=== PATIENT | female | born 1990 | race Caucasian/White ===

== ENCOUNTER 2017-12-07 12:59 | Outpatient (CLI) | payer BC ==
[~2017-12-07] VITALS: Ht 165.1 cm; Wt 78.2 kg
[2017-12-07 12:48] VITALS: BP 100/55
[2017-12-07] MEDS ORDERED: PREN1TAB10 PO (15:03)
[2017-12-07] MEDS ORDERED: ACET-76 PO (15:04)
== END 2017-12-07 15:30 | disposition home or self-care (01) ==
LOC: LDOP 12:59
PROVIDERS: ATTEND Obstetrics & Gynecology
DX: O26.893 Other specified pregnancy related conditions, third trimester (principal); M54.5 Low back pain; Z3A.29 29 weeks gestation of pregnancy
CPT/HCPCS: 59025; 99211; G0463

== ENCOUNTER 2017-12-28 18:04 | Outpatient (CLI) | payer BC ==
[~2017-12-28 18:04] MED LIST: ACET-76 PO; PREN1TAB10 PO
== END 2017-12-28 19:00 | disposition home or self-care (01) ==
LOC: LDOP 18:04
PROVIDERS: ATTEND Obstetrics & Gynecology Maternal & Fetal Medicine
DX: O36.8130 Decreased fetal movements, third trimester, not applicable or unspecified (principal); Z3A.33 33 weeks gestation of pregnancy
CPT/HCPCS: 59025; 99211; G0463

== ENCOUNTER 2018-02-12 03:50 | Inpatient (IN) | payer BC ==
[~2018-02-12] VITALS: Ht 167.6 cm; Wt 82.7 kg
[2018-02-12 03:50] VITALS: BP 125/80
[2018-02-12] MEDS ORDERED: OXYTOCIN 30U/ 0.9% NaCL 500ML 500 ML IV ONE (03:54)
[2018-02-12] MEDS ORDERED: D5%-LACTATED RINGERS 1,000 ML IV SCH (03:54)
[2018-02-12] MEDS ORDERED: LACTATED RINGERS 1,000 ML IV SCH ×2 (03:54→08:55)
[2018-02-12] MEDS ORDERED: OXYTOCIN 30U/ 0.9% NaCL 500ML 500 ML IV PRN (03:54)
[2018-02-12] MEDS ORDERED: TERBUTALINE 1 MG/ML, 1ML IVPush PRN (04:00)
[2018-02-12] MEDS ORDERED: CALCIUM CARBONATE 500 MG TAB.CHEW PO PRN (04:00)
[2018-02-12] MEDS ORDERED: FENTANYL PF 100 MCG/2ML IV PRN (04:00)
[2018-02-12] MEDS ORDERED: ONDANSETRON 2MG/ML, 2ML IVPush PRN (04:00)
[2018-02-12] MEDS ORDERED: FENTANYL PF 100 MCG/2ML IVPush PRN (04:00)
[2018-02-12] MEDS ORDERED: OXYTOCIN 30U/ 0.9% NaCL 500ML 500 ML ONE ×3 (04:09→09:20)
[2018-02-12] MEDS ORDERED: PLEASE ENTER HEIGHT AND WEIGHT MC SCH (04:30)
[2018-02-12 04:45] LABS: BASOPHILS # (AUTO) 0.03 x10^3/uL (0-0.1); BASOPHILS % (AUTO) 0 % (0-1); EOSINOPHILS # (AUTO) 0.15 x10^3/uL (0-0.4); EOSINOPHILS % (AUTO) 1 % (1-7); LYMPHOCYTES # (AUTO) 2.54 x10^3/uL (1-3.4); LYMPHOCYTES % (AUTO) 22 % (22-44); MD NO; MEAN CORPUSCULAR HEMOGLOBIN 28.5 pg (27.0-34.8); MEAN CORPUSCULAR HGB CONC 33.3 g/dL (32.4-35.8); MEAN CORPUSCULAR VOLUME 85.6 fL (80-100); MONOCYTES # (AUTO) 0.69 x10^3/uL (0.2-0.8); MONOCYTES % (AUTO) 6 % (2-9); NEUTROPHILS % (AUTO) 70 % (42-75); PLATELET COUNT 181 x10^3/uL (130-400); RED BLOOD COUNT 4.25 x10^6/uL (3.82-5.3); RED CELL DISTRIBUTION WIDTH 14.4 % (9.6-15.2)
[2018-02-12] MEDS ORDERED: LIDOCAINE/PF 1%, 30ML ONE (06:48)
[2018-02-12] MEDS ORDERED: MISOPROSTOL 200 MCG TABLET ONE ×2 (06:48→09:19)
[2018-02-12] MEDS ORDERED: FENTANYL/BUPIV./NS/PF 250 ML EPIDCONT SCH ×2 (08:55→09:02)
[2018-02-12] MEDS ORDERED: NALOXONE 0.4 MG/ML, 1ML IVPush PRN (09:00)
[2018-02-12] MEDS ORDERED: EPHEDRINE 50 MG/ML, 1ML IVPush PRN (09:00)
[2018-02-12 09:15] VITALS: BP 120/72
[2018-02-12] MEDS ORDERED: LIDOCAINE 1%, 50ML ONE (09:19)
[2018-02-12] MEDS: LACTATED RINGERS 1,000 ML IVBOLUS PRN ×2 (09:43→11:00)
[2018-02-12 19:07] VITALS: BP 124/67
[2018-02-12] MEDS ORDERED: IBUPROFEN 600 MG TABLET ONE (19:26)
[2018-02-12] MEDS ORDERED: DIPH,PERTUSS(ACELL),TET VAC/PF NC IM-VACC PRN (19:30)
[2018-02-12] MEDS ORDERED: RHOGAM FROM BLOOD BANK 1 NOTE EA IM/IV ONE (19:30)
[2018-02-12] MEDS ORDERED: ACETAMINOPHEN 325 MG TABLET PO PRN (19:30)
[2018-02-12] MEDS ORDERED: OXYcodone/APAP 5/325MG TABLET PO PRN ×2 (19:30)
[2018-02-12] MEDS ORDERED: METHYLERGONOVINE 0.2 MG/ML IM PRN (19:30)
[2018-02-12] MEDS ORDERED: DOCUSATE 100 MG CAPSULE PO PRN (19:30)
[2018-02-12] MEDS ORDERED: MEASLES,MUMPS&RUBELLA VACC/PF 0.5 ML SQ PRN (19:30)
[2018-02-12] MEDS ORDERED: MISOPROSTOL 200 MCG TABLET PR PRN (19:30)
[2018-02-12] MEDS ORDERED: CARBOPROST TROMETHAMINE 250 MCG/ML, 1ML IM PRN (19:30)
[2018-02-12] MEDS ORDERED: IBUPROFEN 600 MG TABLET PO PRN (19:30)
[2018-02-12] MEDS: OXYTOCIN 30U/ 0.9% NaCL 500ML 500 ML IV SCH (19:54)
[2018-02-12 20:32] VITALS: BP 112/69
[2018-02-13 01:00] VITALS: BP 109/66
[2018-02-13 04:30] VITALS: BP 121/82
[2018-02-13] MEDS: OXYTOCIN 30U/ 0.9% NaCL 500ML 500 ML IV SCH ×2 (05:12→15:12)
[2018-02-13 06:14] LABS: BASOPHILS # (AUTO) 0.04 x10^3/uL (0-0.1); BASOPHILS % (AUTO) 0 % (0-1); EOSINOPHILS % (AUTO) 1 % (1-7); LYMPHOCYTES # (AUTO) 2.47 x10^3/uL (1-3.4); LYMPHOCYTES % (AUTO) 17 % (22-44); MD NO; MEAN CORPUSCULAR HGB CONC 33.9 g/dL (32.4-35.8); MEAN CORPUSCULAR VOLUME 85.6 fL (80-100); MEAN PLATELET VOLUME 9.8 fL (7.4-10.4); MONOCYTES # (AUTO) 0.76 x10^3/uL (0.2-0.8); MONOCYTES % (AUTO) 5 % (2-9); NEUTROPHILS # (AUTO) 11.18 x10^3/uL (1.8-6.8); NEUTROPHILS % (AUTO) 77 % (42-75); PLATELET COUNT 160 x10^3/uL (130-400); RED CELL DISTRIBUTION WIDTH 14.4 % (9.6-15.2)
[2018-02-13 07:30] VITALS: BP 110/73
[2018-02-13] MEDS ORDERED: PRENATAL VIT/IRON/FA 1 EACH TABLET PO SCH (09:00)
[2018-02-13 12:20] VITALS: BP 119/83
[2018-02-13 16:30] VITALS: BP 128/86
== END 2018-02-13 18:00 | disposition home or self-care (01) | DRG 775 ==
LOC: LDIP 03:50 → 2NW 20:15
PROVIDERS: ADMIT Obstetrics & Gynecology Maternal & Fetal Medicine; ATTEND Obstetrics & Gynecology Maternal & Fetal Medicine
PROC: 10E0XZZ Delivery of Products of Conception, External Approach (ICD-10-PCS; principal; 2018-02-12)
PROC: 3E033VJ Introduction of Other Hormone into Peripheral Vein, Percutaneous Approach (ICD-10-PCS; 2018-02-12)
PROC: 3E0R3BZ Introduction of Anesthetic Agent into Spinal Canal, Percutaneous Approach (ICD-10-PCS; 2018-02-12)
PROC: 00HU33Z Insertion of Infusion Device into Spinal Canal, Percutaneous Approach (ICD-10-PCS; 2018-02-12)
PROC: 10H07YZ Insertion of Other Device into Products of Conception, Via Natural or Artificial Opening (ICD-10-PCS; 2018-02-12)
PROC: 3E0234Z Introduction of Serum, Toxoid and Vaccine into Muscle, Percutaneous Approach (ICD-10-PCS; 2018-02-13)
DX: O71.82 Other specified trauma to perineum and vulva (principal); Z37.0 Single live birth; Z3A.39 39 weeks gestation of pregnancy; Z23 Encounter for immunization
CPT/HCPCS: 36415; J7121; 85025; 86850; 86900; 90715; J2590; J3010; J7120